=== PATIENT | male | born 1945 | race Caucasian/White ===

== ENCOUNTER 2020-01-11 14:39 | Outpatient (CLI) | payer MEDICARE, BC ==
[~2020-01-11 14:39] MED LIST: LEVO750T26 PO; LOVA10TA PO
== END 2020-01-11 23:59 | disposition home or self-care (01) ==
LOC: CVU 14:39
PROVIDERS: ATTEND Physician Assistant Medical
DX: I08.2 Rheumatic disorders of both aortic and tricuspid valves (principal); I11.9 Hypertensive heart disease without heart failure; R94.31 Abnormal electrocardiogram [ECG] [EKG]
CPT/HCPCS: 93306

== ENCOUNTER 2020-05-09 12:43 | Outpatient (CLI) | payer MEDICARE, BC ==
[2020-05-09] MEDS ORDERED: VITAMIN B12 PO (13:48)
[2020-05-09] MEDS ORDERED: MULTI VITAMIN PO (13:48)
[2020-05-09] MEDS ORDERED: ATOR-2 PO (13:48)
[2020-05-09] MEDS ORDERED: OMEGA PO (13:48)
[2020-05-09] MEDS ORDERED: VITAMIN C PO (13:48)
[2020-05-09] MEDS ORDERED: VITAMIN D3 PO (13:48)
[2020-05-09] MEDS ORDERED: COQ (13:48)
[2020-05-09] MEDS ORDERED: MAGNESIUM PO (13:48)
[2020-05-09] MEDS ORDERED: LISI-170 PO (13:48)
== END 2020-05-09 23:59 | disposition home or self-care (01) ==
LOC: STAR 12:43
PROVIDERS: ATTEND Orthopaedic Surgery
DX: Z01.818 Encounter for other preprocedural examination (principal); Z20.828 Contact with and (suspected) exposure to other viral communicable diseases; M20.10 Hallux valgus (acquired), unspecified foot
CPT/HCPCS: 36415; 87635; 93005

== ENCOUNTER 2020-05-13 08:07 | Day surgery (SDC) | payer MEDICARE, BC ==
[~2020-05-13] VITALS: Ht 180.3 cm; Wt 83.0 kg
[~2020-05-13 08:07] MED LIST changes: +ATOR-2 PO; +BUPIVACAINE/PF 0.5% ONE; +COQ; +LIDOCAINE/PF 1%, 30ML ONE; +LISI-170 PO; +MAGNESIUM PO; +MULTI VITAMIN PO; +OMEGA PO; +VITAMIN B12 PO; +VITAMIN C PO; +VITAMIN D3 PO
[2020-05-13] MEDS ORDERED: CHLORHEXIDINE 15 ML UDC MM STA (08:34)
[2020-05-13] MEDS ORDERED: LACTATED RINGERS 1,000 ML IV SCH (08:36)
[2020-05-13 08:40] VITALS: BP 143/85
[2020-05-13] MEDS ORDERED: FENTANYL PF 250 MCG/5ML ONE (09:53)
[2020-05-13] MEDS ORDERED: MIDAZOLAM 1 MG/ML, 2ML ONE (10:21)
[2020-05-13] MEDS ORDERED: OXYcodone 5 MG/5 ML ORAL.SOL UDC PO PRN (10:30)
[2020-05-13] MEDS ORDERED: PROMETHAZINE 25 MG/ML, 1ML IVPush PRN (10:30)
[2020-05-13] MEDS ORDERED: LABETALOL 5MG/ML, 20ML IV PRN (10:30)
[2020-05-13] MEDS ORDERED: ACETAMINOPHEN 325 MG TABLET PO PRN (10:30)
[2020-05-13] MEDS ORDERED: hydrALAzine 20 MG/ML, 1ML IV PRN (10:30)
[2020-05-13] MEDS ORDERED: DIAZEPAM 5 MG/ML, 2ML IVPush PRN (10:30)
[2020-05-13] MEDS ORDERED: MEPERIDINE/PF 25MG/0.5ML IVPush PRN (10:30)
[2020-05-13] MEDS ORDERED: DIPHENHYDRAMINE 50 MG/ML, 1ML IVPush PRN (10:30)
[2020-05-13] MEDS ORDERED: ONDANSETRON 2MG/ML, 2ML IVPush PRN (10:30)
[2020-05-13] MEDS ORDERED: FENTANYL PF 100 MCG/2ML IV PRN (10:30)
[2020-05-13] MEDS ORDERED: HYDROmorphone 1 MG/ML, 1ML INJ IVPush PRN (10:30)
[2020-05-13] MEDS ORDERED: CEFAZOLIN 1,000 MG ONE (10:34)
[2020-05-13] MEDS ORDERED: PHENYLEPHRINE 10 MG/ML ONE (10:34)
[2020-05-13] MEDS ORDERED: DEXAMETHASONE 4 MG/ML, 1ML ONE (10:34)
[2020-05-13] MEDS ORDERED: ONDANSETRON 2MG/ML, 2ML ONE (10:34)
[2020-05-13] MEDS ORDERED: PROPOFOL 10 MG/ML, 20ML ONE (10:34)
[2020-05-13] MEDS ORDERED: ROCURONIUM 10MG/ML,5ML ONE (10:34)
[2020-05-13] MEDS ORDERED: GLYCOPYRROLATE 0.2MG/1ML, 5ML ONE (10:34)
== END 2020-05-13 13:25 | disposition home or self-care (01) ==
LOC: OUT 08:07
PROVIDERS: ATTEND Orthopaedic Surgery
DX: M20.12 Hallux valgus (acquired), left foot (principal); M20.11 Hallux valgus (acquired), right foot; L97.429 Non-pressure chronic ulcer of left heel and midfoot with unspecified severity; M25.775 Osteophyte, left foot; G89.18 Other acute postprocedural pain; A52.16 Charcot's arthropathy (tabetic); G62.9 Polyneuropathy, unspecified; I10 Essential (primary) hypertension; E78.5 Hyperlipidemia, unspecified; Z79.899 Other long term (current) drug therapy; Z98.890 Other specified postprocedural states
CPT/HCPCS: 27687; 27691; 28750; 64445; 73660; C1713; J0690; J1100; J2250; J2370; J2405; J2704; J3010; J7120; 76000